=== PATIENT | female | born 1985 | race Caucasian/White ===

== ENCOUNTER 2017-12-22 03:48 | Emergency (ER) | payer OTHER ==
[~2017-12-22] VITALS: Ht 167.6 cm; Wt 82.6 kg
--- NOTE | 2017-12-22 03:58 | PHYS DOC ---
Adult General HPI HPI Patient is a 32-year-old female presenting with chief complaint of chest pain described as sharp sternal area worse with deep breathing and palpation feels it in the back she felt on Friday night into Friday morning it went away it has come back at 1 AM tonight she took Advil and the pain went from an 8 down to a 2 she is feeling much better she is one to come and check out to make sure she is not having a heart attack. She has a recent URI 2-3 weeks of sinus congestion coughing that is improving now. She is not currently coughing she is not coughing up any blood she has never had a blood clot she does not take any oral contraceptives she has had no leg swelling unknown family history she is adopted Review of Systems Review of Systems Constitutional: Denies fever or chills [] Negative for shortness of breath GI: Denies abdominal pain, nausea, vomiting, bloody stools or diarrhea [] : Denies dysuria or hematuria [] Musculoskeletal: Denies back pain or joint pain [] Integument: Denies rash or skin lesions [] Neurologic: Denies headache, focal weakness or sensory changes [] Endocrine: Denies polyuria or polydipsia [] All other systems were reviewed and found to be within normal limits, except as documented in this note. Physical Exam Physical Exam Constitutional: Well developed, well nourished, no acute distress, non-toxic appearance. [] HENT: Normocephalic, atraumatic, bilateral external ears normal, oropharynx moist, no oral exudates, nose normal. [] Eyes: PERRLA, EOMI, conjunctiva normal, no discharge. [] Neck: Normal range of motion, no tenderness, supple, no stridor. [] Cardiovascular:Heart rate regular rhythm, no murmur [] Lungs & Thorax: Bilateral breath sounds clear to auscultation []mild chest wall tenderness to palpation is noted Abdomen: Bowel sounds normal, soft, no tenderness, no masses, no pulsatile masses. [] Skin: Warm, dry, no erythema, no rash. [] Back: No tenderness, no CVA tenderness. [] Extremities: No tenderness, no cyanosis, no clubbing, ROM intact, no edema. [] Neurologic: Alert and oriented X 3, normal motor function, normal sensory function, no focal deficits noted. [] Psychologic: Affect normal, judgement normal, mood normal. [] EKG EKG Normal sinus rhythm rate 85 no acute ischemic changes noted. Nonspecific changes inferiorly interpreted by me the time of encounter. Radiology/Procedures Radiology/Procedures [] Impressions: Chest x-ray interpreted by me shows normal diaphragm heart lungs and bones Course & Med Decision Making Course & Med Decision Making Pertinent Labs and Imaging studies reviewed. (See chart for details) []Perc negative Troponin negative EKG shows no ischemia patient is very well-appearing. Heart score would be a 0 Suspect musculoskeletal chest pain given the recent URI it does not seem like a dissection the pain went from an 8 down to a 2 with Motrin at home she did not need any medication here. Patient was counseled on signs and symptoms and return precautions and she voiced understanding abdomen was nontender don't think this is referred pain Dragon Disclaimer Dragon Disclaimer This electronic medical record was generated, in whole or in part, using a voice recognition dictation system. Departure Departure: Impression: Primary Impression: Chest pain Disposition: HOME, SELF-CARE Condition: STABLE Referrals: EVANS FOSTER DO, [facility] (PCP) JULIO CESAR BLACKMON MD Dec 22, 2017 03:58
[2017-12-22 04:36] LABS: BASO % 0 % (0-3); EOS # 0.2 x10^3/uL (0.0-0.7); EOS % 3 % (0-3); HEMOGLOBIN 12.7 g/dL (12.0-15.5); LYMPH # 2.4 x10^3/uL (1.0-4.8); LYMPH % 42 % (24-48); MEAN CORPUSCULAR HEMOGLOBIN 28 pg (25-35); MEAN CORPUSCULAR HGB CONC 34 g/dL (31-37); MEAN CORPUSCULAR VOLUME 80 fL (79-100); MONO # 0.4 x10^3/uL (0.0-1.1); MONO % 8 % (0-9); NEUT # 2.8 x10^3uL (1.8-7.7); NEUT % 48 % (31-73); PLATELET COUNT 295 x10^3/uL (140-400); RED BLOOD COUNT 4.62 x10^6/uL (3.50-5.40); RED CELL DISTRIBUTION WIDTH 12.2 % (11.5-14.5); WHITE BLOOD COUNT 5.8 x10^3/uL (4.0-11.0)
[2017-12-22 04:55] VITALS: BP 132/69
[2017-12-22 04:55] LABS: ALBUMIN/GLOBULIN RATIO 0.9 (1.0-1.7); CALCIUM 8.3 mg/dL (8.5-10.1); CREATININE 0.6 mg/dL (0.6-1.0); GFR 115.1; POTASSIUM 3.9 mmol/L (3.5-5.1); TOTAL BILIRUBIN 0.3 mg/dL (0.2-1.0); TOTAL PROTEIN 6.4 g/dL (6.4-8.2)
--- NOTE | 2017-12-22 07:25 | EKG ---
[address] [address] Test Date: 2017-12-22 Test Time: 03:51:28 Pat Name: MAKENZIE URIARTE Department: Room: Gender: F [employer] Supervisor: : [id number] Requested By: JULIO CESAR BLACKMON Order Number: [id number] Reading MD: Shiva Govea MD Measurements Intervals Gray Rate: 85 P: 31 MT: 120 QRS: 17 QRSD: 100 T: 12 QT: 356 QTc: 424 Interpretive Statements SINUS RHYTHM Electronically Signed On 12-22-2017 12:30:53 CDT by Shiva Govea MD
--- NOTE | 2017-12-22 07:58 | RAD ---
Portable chest, 12/22/2017: HISTORY: Chest pain The heart size and pulmonary vascularity are normal. No pulmonary infiltrate is seen. There is no evidence of pleural fluid. IMPRESSION: No acute cardiopulmonary abnormality is detected. Electronically signed by: Claudio Ware MD (12/22/2017 7:55 AM) [facility]
== END 2017-12-22 05:21 | disposition home or self-care (01) ==
LOC: ER 03:48
DX: R07.2 Precordial pain (principal)
CPT/HCPCS: 36415; 71045; 80053; 81025; 83690; 84484; 85025; 93005; 99285